=== PATIENT | male | born 1935 | race Caucasian/White ===

== ENCOUNTER 2017-01-07 09:43 | Outpatient (CLI) | payer OTHER, MEDICARE | END 2017-01-07 23:00 | LOC: LAB SRH 09:43 | DX: N18.3 Chronic kidney disease, stage 3 (moderate) (principal); I10 Essential (primary) hypertension | CPT/HCPCS: 90047; 90074 ==

== ENCOUNTER 2017-02-14 13:32 | Outpatient (CLI) | payer OTHER, MEDICARE | END 2017-02-14 23:00 | LOC: LAB SRH 13:32 | DX: I10 Essential (primary) hypertension (principal); N18.3 Chronic kidney disease, stage 3 (moderate) | CPT/HCPCS: 90047; 90074 ==